=== PATIENT | female | born 1960 | race American Indian/Alaskan Native ===

== ENCOUNTER 2021-10-20 09:41 | Outpatient (CLI) | payer OTHER ==
--- NOTE | 2021-10-21 15:56 | Mammography Report ---
DIGITAL SCREENING MAMMOGRAM WITH CAD, 10/20/2021 CLINICAL INFORMATION / INDICATION: Routine screening mammography. SCREENING MAMMOGRAM TECHNIQUE: Digital bilateral 2D mammography was obtained in the craniocaudal and mediolateral obliqu e projections. This examination was interpreted with the benefit of Computer-Aided Detection analysis . COMPARISON: 12/13/2017 through 04/10/2021. FINDINGS: Breast Density: There are scattered areas of fibroglandular density. No dominant mass, suspicious calcifications, or architectural distortion in either breast. Small benign-appearing nodule in the right central breast and benign-appearing calcifications bilater ally, more numerous on the left than the right, have not changed. IMPRESSION: No mammographic evidence of malignancy. Follow up recommendation: Routine yearly BI-RADS Category 2: BENIGN. A "normal" or negative report should not discourage follow up or biopsy of a clinically significant f inding. A written summary of these findings will be mailed to the patient. The patient will be entered into a mammography reporting system which will generate a reminder letter for the patient's next appointmen t at the appropriate interval. [employer] recommends yearly mammograms starting at age 40 and continuing as l burt as a woman is in good health. Breast MRI is recommended for women with an approximate 20-25% or greater lifetime risk of breast cancer, including women with a strong family history of breast or ova tarsha cancer or who have been treated for Hodgkin's disease. Signer Name: Atif Fairchild MD Signed: 10/21/2021 3:52 PM Workstation Name: [id number]
== END 2021-10-20 09:42 | disposition home or self-care (01) ==
LOC: MAMMO 09:41
DX: Z12.31 Encounter for screening mammogram for malignant neoplasm of breast (principal); N64.89 Other specified disorders of breast
CPT/HCPCS: 77067